=== PATIENT | female | born 2000 ===

== ENCOUNTER 2023-08-06 10:36 | Outpatient (CLI) | payer OTHER | END 2023-08-06 10:37 | disposition home or self-care (01) | LOC: BICULT 10:36 | PROVIDERS: ATTEND Family Medicine | DX: Z34.82 Encounter for supervision of other normal pregnancy, second trimester (principal); M54.50 Low back pain, unspecified; M53.3 Sacrococcygeal disorders, not elsewhere classified; M25.551 Pain in right hip; M25.552 Pain in left hip; Z3A.26 26 weeks gestation of pregnancy | CPT/HCPCS: 76805 ==